=== PATIENT | female | born 2000 | race Two or more races ===

== ENCOUNTER 2023-01-27 20:44 | Emergency (ER) | payer MEDICAID ==
--- NOTE | 2023-01-27 21:04 | ED Physician Documentation ---
PD HPI CHEST PAIN - Stated complaint Stated Complaint: CHEST PX/NECK PX/L ARM PX - Chief complaint Chief Complaint: Cardiac - History obtained from History obtained from: Patient - Additional information Additional information: 22-year-old female with no reported past medical history presents by private vehicle for generalized chest tightness, left arm pain, left neck pain that she noticed while she was at work today. Associated lightheadedness. Since arriving to the emergency department her chest tightness and arm pain have subsided, but she still feels generally lightheaded. Denies family history of heart disease, denies shortness of breath, recent long trips or immobilizations, denies use of hormonal control, leg swelling Review of Systems Constitutional: denies: Fever, Chills Cardiac: reports: Chest pain / pressure. denies: Palpitations, Calf pain Respiratory: denies: Dyspnea, Cough, Wheezing GI: denies: Abdominal Pain, Nausea, Vomiting, Constipation, Diarrhea Musculoskeletal: reports: Neck pain, Extremity pain. 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 : None HEENT: None Psych: None Musculoskeletal: None Derm: None - Past Surgical History Past Surgical History: No - Allergies Allergies/Adverse Reactions: Allergies Allergy/AdvReac Type Severity Reaction Status Date / Time No Known Drug Allergies Allergy Verified 01/27/23 20:47 - Social History Does the pt smoke?: No Smoking Status: Never smoker Does the pt drink ETOH?: No Does the pt have substance abuse?: No - Immunizations Immunizations are current?: Yes PD ED PE NORMAL - Vitals Vital signs reviewed: Yes - General General: Alert and oriented X 3, Well developed/nourished - HEENT HEENT: Atraumatic, PERRL, EOMI - Neck Neck: Supple, no meningeal sign, No bony TTP - Cardiac Cardiac: RRR, No murmur, Strong equal pulses - Respiratory Respiratory: No respiratory distress, Clear bilaterally - Abdomen Abdomen: Soft, Non tender, Non distended - Derm Derm: Normal color, Warm and dry, No rash - Extremities Extremities: No deformity, No tenderness to palpate, Normal ROM s pain, No edema - Neuro Neuro: Alert and oriented X 3, bouffant curtain machine tender 2-12 intact, No motor deficit, Normal speech Results - Vitals Vitals: Vital Signs - 24 hr 01/27/23 01/27/23 20:47 21:10 Temperature 36.5 C Heart Rate 70 72 Respiratory 16 19 Rate Blood Pressure 136/88 H 110/79 O2 Saturation 100 100 Oxygen O2 Source Room air - EKG (time done) 2053 EKG releavant findings:: EKG personally interpreted by author of this note. Relevant findings are: Rate: Rate (enter#) (71) Rhythm: NSR [place]: Normal Intervals: Normal CO QRS: Normal Ischemia: Normal ST segments - Labs Labs: Laboratory Tests 01/27/23 01/27/23 21:01 21:01 WBC 7.2 RBC 4.25 Hgb 12.7 Hct 37.5 MCV 88.2 MCH 29.9 MCHC 33.9 RDW 12.1 Plt Count 284 MPV 11.1 H Neut # (Auto) 3.4 Lymph # (Auto) 3.0 [place] # (Auto) 0.6 Eos # (Auto) 0.2 Baso # (Auto) 0.0 Absolute Nucleated RBC 0.00 Nucleated RBC % 0.0 Sodium 137 Potassium 3.0 L Chloride 106 Carbon Dioxide 20 L Anion Gap 11.0 BUN 13 Creatinine 0.6 Estimated GFR (MDRD) 125 Glucose 96 Calcium 9.4 Total Bilirubin 0.3 AST 15 ALT 12 Alkaline Phosphatase 84 Total Protein 7.6 Albumin 4.6 Globulin 3.0 Albumin/Globulin Ratio 1.5 PD Medical Decision Making - ED course Complexity details: reviewed results, re-evaluated patient, considered differential, d/w patient ED course: Well-appearing female with chest tightness and arm pain with lightheadedness at work. Heart score 0, patient has no known risk factors, is young. PERC negative. Vital signs unremarkable. Laboratory work significant only for low CO2 and low potassium. I do highly suspect anxiety is a component of patient's symptoms as hyperventilation can cause low CO2 and transient hypokalemia. Patient reassessed, resting comfortably in bed. She does state that she has been under a lot of stress from a recent move of [place] to [facility], and she is pretty sure she may have had an anxiety attack, but because of her symptoms she wanted to come [facility] to be checked out to make sure there is nothing else going on. Routine primary care follow-up recommended, ED return precautions discussed at bedside. Departure - Departure Disposition: 01 Home, Self Care Clinical Impression: Chest pain Qualifiers: Chest pain type: unspecified Qualified Code(s): R07.9 - Chest pain, unspecified Condition: Stable Instructions: ED Chest Pain NonCardiac Comments: Take Tylenol and Motrin as needed for any aches or pains. Please follow-up with a primary care physician if you continue to experience chest tightness and pains. Your EKG and laboratory work here today was significant for mildly low potassium. I recommend eating potassium rich food over the next day or 2 and this should go back to normal. Forms: PCP List
[2023-01-27 21:08] LABS: BASOPHILS % (AUTO) 0.6 %; EOSINOPHILS # (AUTO) 0.2 10^3/uL (0.0-0.7); EOSINOPHILS % (AUTO) 2.6 %; HCT - HEMATOCRIT 37.5 % (37.0-47.0); HGB - HEMOGLOBIN 12.7 g/dL (12.0-16.0); LYMPHOCYTES % (AUTO) 41.1 %; MEAN CORPUSCULAR HEMOGLOBIN 29.9 pg (27.0-31.0); MEAN CORPUSCULAR HGB CONC 33.9 g/dL (32.0-36.0); MEAN CORPUSCULAR VOLUME 88.2 fL (81.0-99.0); MEAN PLATELET VOLUME 11.1 fL (7.9-10.8); MONOCYTES # (AUTO) 0.6 10^3/uL (0.0-1.0); MONOCYTES % (AUTO) 7.9 %; NEUTROPHILS # (AUTO) 3.4 10^3/uL (1.5-6.6); NEUTROPHILS % (AUTO) 47.5 %; PLT - PLATELET COUNT 284 10^3/uL (130-450); RED BLOOD COUNT 4.25 10^6/uL (4.20-5.40); RED CELL DISTRIBUTION WIDTH 12.1 % (12.0-15.0); WHITE BLOOD COUNT 7.2 x10^3/uL (4.8-10.8)
--- NOTE | 2023-01-27 21:30 | XRAY Report ---
PROCEDURE: Chest 1 View X-Ray INDICATIONS: chest pain TECHNIQUE: One view of the chest was acquired. COMPARISON: None. FINDINGS: Surgical changes and devices: None. Lungs and pleura: No pleural effusions or pneumothorax. Lungs are clear. Mediastinum: Mediastinal contours appear normal. Heart size is normal. Bones and chest wall: No suspicious bony lesions. Overlying soft tissues appear unremarkable. IMPRESSION: No acute cardiopulmonary process. Reviewed by: Raya Wilkins MD on 01/27/2023 9:29 PM [facility] Approved by: Raya Wilkins MD on 01/27/2023 9:29 PM [facility] Station ID: [id number]
[2023-01-27 21:32] LABS: ALBUMIN 4.6 g/dL (3.2-5.5); ALBUMIN/GLOBULIN RATIO 1.5 (1.0-2.2); BILIRUBIN,TOTAL 0.3 mg/dL (0.2-1.0); CALCIUM 9.4 mg/dL (8.5-10.3); CREATININE 0.6 mg/dL (0.6-1.3); TOTAL PROTEIN 7.6 g/dL (6.4-8.9)
[2023-01-27 21:53] VITALS: BP 103/70; O2SAT 96
== END 2023-01-27 21:45 | disposition home or self-care (01) ==
LOC: ED 20:44
DX: R07.89 Other chest pain (principal); M79.602 Pain in left arm; R42 Dizziness and giddiness; E87.6 Hypokalemia
CPT/HCPCS: 36415; 80053; 85025; 93005; 99283; 99284

== ENCOUNTER 2023-05-03 22:19 | Emergency (ER) | payer SELFPAY ==
--- NOTE | 2023-05-04 00:30 | ED Physician Documentation ---
History of Present Illness - Stated complaint Stated Complaint: BACK/NECK PX - Chief complaint Chief Complaint: Ext Problem - History obtained from History obtained from: Patient - Additonal information Additional information: HPI from patient. Patient complains of a few weeks of neck and back pain. She also has been having episodic nausea without vomiting, intermittent generalized headaches. She says that, at times, the pain radiates to her arms and legs; thus, some of her symptom description is of diffuse body pain. In trying to ascertain her chief concern and chief reason for presenting to emergency department at this time for symptoms that have been going on for at least the past few weeks, she says she is most concerned about the posterior neck and upper back pain. And pointing to where it hurts the most, she indicates neck pain is more on the right than the left and radiates to the right trapezius ridge. She denies fever, shortness of breath, cough, abdominal pain. She denies chances of . She indicates a pleuritic component to the upper back discomfort. 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 : None HEENT: None Psych: None Musculoskeletal: None Derm: None - Past Surgical History Past Surgical History: No - Present Medications Home Medications: Ambulatory Orders Medication Instructions Recorded Confirmed traMADol [Ultram] 50 - 100 mg PO Q6H PRN #20 tablet 05/04/23 - Allergies Allergies/Adverse Reactions: Allergies Allergy/AdvReac Type Severity Reaction Status Date / Time No Known Drug Allergies Allergy Verified 05/03/23 22:35 - Social History Does the pt smoke?: No Smoking Status: Never smoker Does the pt drink ETOH?: No Does the pt have substance abuse?: No - Immunizations Immunizations are current?: Yes - POLST Patient has POLST: No PD ED PE NORMAL - Vitals Vital signs reviewed: Yes - General General: Alert and oriented X 3, No acute distress, Well developed/nourished - HEENT HEENT: Moist mucous membranes - Neck Neck: Supple, no meningeal sign - Cardiac Cardiac: RRR, No murmur, No gallop, No rub - Respiratory Respiratory: No respiratory distress, Clear bilaterally - Abdomen Abdomen: Soft, Non tender - Extremities Extremities: No edema Results - Vitals Vitals: Oxygen O2 Source Room air PD Medical Decision Making - ED course Complexity details: considered differential, d/w patient ED course: PERC negative. No obvious cardiac risk factors. Her symptoms are wide-ranging in location and have been recurring for a minimum of a few weeks, with some symptoms (such as the pleuritic chest pain) episodic over the past few months. This patient was evaluated in this emergency department in January 2023 for some of the symptoms, specifically the pleuritic chest pain. At that time, EKG, chest x-ray, and blood work were unrevealing and without concerning/diagnostic findings. She is well-appearing on exam tonight, and physical exam is unremarkable. Emergent testing is unlikely to yield a diagnosis or suggest a specific treatment (such as an antibiotic or blood thinner). Advised patient that she should follow-up in the outpatient setting with her primary care provider; she might benefit from testing, but, at this point, testing can proceed in the outpatient setting. We did discuss return precautions and I encouraged her to return should she develop new/concerning signs/symptoms (such as fever, hemoptysis, abdominal pain, visual changes), or to return if any of her symptoms progress in severity. She request something for the pain and she is given a take-home pack of Vicodin and I am providing a prescription for tramadol. Departure - Departure Disposition: 01 Home, Self Care Clinical Impression: Body aches Condition: Good Instructions: ED Muscle Aching Prescriptions: traMADol [Ultram] 50 - 100 mg PO Q6H PRN #20 tablet PRN Reason: Pain 5-7 Comments: As we discussed, based on your description of the symptoms, the ongoing nature/timing, and lack of remarkable/concerning findings on physical exam, emergent testing at this time is not indicated. It is unlikely that the test I have available emergency department would suggest for reveal any particular diagnosis. This is not to deny that you are having symptoms, and it is possible you would benefit from testing but this can proceed in the outpatient setting (with your primary care provider). In the meantime, I am providing you with a prescription for Ultram (narcotic/op iate pain medication). I am prescribing a short course of narcotic pain medication for you. These are potentially dangerous and addictive medications that should be used carefully. These medications may constipate you. Take an cyyk-utt-afgvjvy stool softener (docusate) twice daily with plenty of water while taking these medications. If you go 24 hours without a bowel movement, take [id number] miralax, per package instructions. Do not drink or drive while taking these medications. If you received narcotic or sedating medications while in the emergency department, do not drive for 24 hours. Store this medication in a safe, secure place and out of reach of children. It is a violation of federal law to give or sell this medication to another person or to use in a manner other than prescribed. The ED will not refill narcotic prescriptions, including prescriptions lost or stolen. To dispose of unwanted medications: 1. [facility] at [address] in [place] has a medication drop box. They accept prescription medications (in pill form) Monday through Monday 9:00 a.m. to 5:00 p.m. 2. [facility] accepts prescription medications (in pill form only) for disposal year round. Call for more information. 3. Contact the [facility] for the next [facility] sponsored prescription dr ug collection event. , [phone], or [phone]; Forms: PCP List Discharge Date/Time: 05/04/23 01:45
[2023-05-04] MEDS: HYDROcod/ACET 5/325 Prepack 4 PO STA (01:42)
[2023-05-04 01:49] VITALS: BP 106/68; O2SAT 100
== END 2023-05-04 01:45 | disposition home or self-care (01) ==
LOC: ED 22:19
DX: M54.2 Cervicalgia (principal); R11.0 Nausea; R51.9 Headache, unspecified
CPT/HCPCS: 93005; 99283; 99284